=== PATIENT | male | born 1965 | race Caucasian/White ===

== ENCOUNTER 2025-02-12 14:01 | Emergency (ER) | payer BC ==
[~2025-02-12] VITALS: Ht 177.8 cm; Wt 75.0 kg
[~2025-02-12 14:01] MED LIST: CHOL100061 PO; LANS30TA10 PO; METF-900 PO; OLME20TA74 PO; TAMS-55 PO
--- NOTE | 2025-02-12 14:45 | RADIOLOGY REPORT ---
CHEST RADIOGRAPH INDICATION: weakness TECHNIQUE: Single frontal view of the chest was obtained COMPARISON: None FINDINGS: Lines and Tubes: None Lungs: Clear Pleura: No effusion. No pneumothorax. Cardiomediastinal contours: Unremarkable Bones: Unremarkable IMPRESSION: No acute disease.
--- NOTE | 2025-02-12 14:54 | ELECTROCARDIOGRAPH REPORT ---
[facility] Test Date: 2025-02-12 Test Time: 14:52:10 Pat Name: DEANNE ROCKWELL Department: EMERGENCY ROOM Room: Gender: M Histology Technician: : 1965 Requested By: DEBO PAREKH Order Number: [id number] Reading MD: Dr. ENMANUEL Causey Measurements Intervals [place] Rate: 105 P: 92 MT: 127 QRS: 111 QRSD: 89 T: 38 QT: 312 QTc: 413 Interpretive Statements Sinus tachycardia Right axis deviation ST elevation, consider inferior injury Electronically Signed On 02-13-2025 18:11:[address] ENMANUEL Causey Please click the below link to view image of tracing.
[2025-02-12 14:59] LABS: MEAN PLATELET VOLUME 7.8 FL (7.4-10.4); RED CELL DISTRIBUTION WIDTH 16.4 % (11.5-14.5)
[2025-02-12 15:22] LABS: LEUKOCYTE ESTERASE ,URINE NEGATIVE (Neg); NITRITES, URINE NEGATIVE (Neg); OCCULT BLOOD,URINE LARGE (Neg)
[2025-02-12 15:40] LABS: UA COLLECTION TYPE URINAL
[2025-02-12 15:43] LABS: AMORPHOUS URATES 2+; SQUAMOUS EPITHELIAL CELL,UR FEW /LPF (FEW)
[2025-02-12 15:44] LABS: CREATININE 0.87 MG/DL (0.60-1.10); TOTAL CARBON DIOXIDE 27.3 MMOL/L (24-32); eCRCL 97 ML/MIN; eGFR 90 ML/MIN
[2025-02-12 15:55] LABS: URINE AMPHETAMINE SCREEN NEGATIVE (Neg); URINE BARBITUATE SCREEN NEGATIVE (Neg); URINE BENZODIAZEPINES SCREEN NEGATIVE (Neg); URINE CANNABINOID SCREEN NEGATIVE (Neg); URINE COCAINE SCREEN NEGATIVE (Neg); URINE METHADONE SCREEN NEGATIVE (Neg); URINE OPIATE SCREEN NEGATIVE (Neg); URINE PHENCYCLIDINE SCREEN NEGATIVE (Neg)
[2025-02-12 16:03] LABS: BANDS% (MANUAL) 4.0 % (0-10); EOSINOPHILS % (MANUAL) 2.0 % (0-6); LYMPHOCYTES % (MANUAL) 13.0 % (21-51); MONOCYTES % (MANUAL) 16.0 % (2-12); NEUTROPHILS % (MANUAL) 65.0 % (42-75)
[2025-02-12 16:04] LABS: PLATELET ESTIMATE NORMAL
[2025-02-12] MEDS: normal saline 1000ml 1,000 ML IV ONE (16:30)
--- NOTE | 2025-02-12 17:12 | Physician Documentation ---
History of Present Illness ~ Chief Complaint: Weakness Stated Complaint: COLD SYMPTOMS SOB Time Seen by MD: 14:30 OK to notify your PCP?: Yes Mode of Arrival: Ambulatory HPI 59 year old male reports several days of weakness and shortness of breath. Recent liver transplant 09/27, as well as subsequent unsuccessful parathyroidectomy and known hypercalcemia. Also had renal stents placed and just removed one week ago as well as lithotripsy for stones. Denies fever but reports body aches. Is on tacrolimus for antirejection. Reports recent URI symptoms. Medication Reconciliation Allergies: Coded Allergies: No Known Allergies (Unverified , 02/15/23) Scheduled Cholecalciferol (Vitamin D3) (Vitamin D3), 1 CAP PO DAILY, (Reported) Lansoprazole (Lansoprazole), 1 TAB PO DAILY, (Reported) Metformin Hcl* (Metformin ER*), 1 TAB PO Q12H, (Reported) Olmesartan Medoxomil (Benicar), 1 TAB PO DAILY, (Reported) Tamsulosin Hcl* (Flomax*), 1 CAP PO DAILY, (Reported) Past Medical History Smoking Status: Never smoker Review of Systems All Other Systems at this time: Reviewed and Negative Physical Exam Vital Signs: RN Vital Signs have been reviewed: Yes, Heart Rate: 94, Respiratory Rate: 16, BP: 117/78, Pulse Oximetry: 99, Weight: 75.000 Oxygen Flow Rate: 0 Physical Exam Gen: no distress HEENT: EOMI, PERRL, NCAT Pulm: CTAB Cardiac: RRR no m/c/r Abd: deferred MSK: no deformity skin: w/d/i neuro: nonfocal Progress Results/Orders Results/Orders Medications Received in ER Medications (Trade) Dose Ordered Sig/Gauri Route PRN Reason Start Time Stop Time Status Last Admin Dose Admin Sodium Chloride 1,000 ml @ 1,000 mls/hr ONCE ONCE IV 02/12/25 16:00 02/12/25 16:59 DC 02/12/25 16:30 1,000 MLS/HR Vital Signs 02/12/25 02/12/25 02/12/25 02/12/25 14:05 14:27 14:27 15:01 Pulse 118 120 114 Resp 18 22 22 24 B/P (MAP) 121/82 110/81 (91) 104/84 (91) Pulse Ox 99 100 99 O2 Flow Rate 0 0 02/12/25 02/12/25 02/12/25 17:04 18:28 19:05 Temp 98.1 Pulse 94 90 95 Resp 16 25 17 B/P (MAP) 117/78 (91) 134/86 (102) 125/80 Pulse Ox 99 100 98 O2 Flow Rate 0 0 Laboratory Tests Test 02/12/25 14:46 02/12/25 15:00 White Blood Count 3.5 L Red Blood Count 4.14 L Hemoglobin 11.2 L Hematocrit 32.6 L Mean Corpuscular Volume 78.8 Mean Corpuscular Hemoglobin 27.2 Mean Corpuscular Hemoglobin Concent 34.5 Red Cell Distribution Width 16.4 H Platelet Count 189 Mean Platelet Volume 7.8 Neutrophils (%) (Auto) 69.2 Lymphocytes (%) (Auto) 15.9 L Monocytes (%) (Auto) 13.5 H Eosinophils (%) (Auto) 0.8 Basophils (%) (Auto) 0.6 Neutrophils # (Auto) 2.4 Lymphocytes # (Auto) 0.6 L Monocytes # (Auto) 0.5 Eosinophils # (Auto) 0.0 Basophils # (Auto) 0.0 CBC Comment Differential Total Cells Counted 100 Neutrophils % (Manual) 65.0 Band Neutrophils % 4.0 Lymphocytes % (Manual) 13.0 L Monocytes % (Manual) 16.0 H Eosinophils % (Manual) 2.0 Platelet Estimate Normal Red Blood Cell Morphology Perf Basophilic Stippling Anisocytosis 1+ Microcytosis 1+ Sodium Level 141 Potassium Level 4.3 Chloride Level 106 Carbon Dioxide Level 27.3 Anion Gap 8 Blood Urea Nitrogen 23 H Creatinine 0.87 Estimated GFR/1.73 m2 90 BUN/Creatinine Ratio 26.4 H Glucose Level 172 H Calcium Level 11.2 H Total Bilirubin 0.6 Aspartate Amino Transf (AST/SGOT) 22 Alanine Aminotransferase (ALT/SGPT) 33 Alkaline Phosphatase 166 H Troponin I High Sensitivity < 4 L Troponin I High Sens Percent Delta Troponin I Hi Sens Absolute Change Total Protein 7.8 Albumin 3.5 Globulin 4.3 Albumin/Globulin Ratio 0.8 L Chemistry Comments Urine Specimen Description Urinal Urine Color Yellow Urine Clarity Cloudy Urine pH 5.5 Urine Specific Herminie 1.025 Urine Protein 100 H Urine Glucose (UA) Negative Urine Ketones Negative Urine Occult Blood Large H Urine Nitrite Negative Urine Bilirubin Small Urine Urobilinogen 0.2 Urine Leukocyte Esterase Negative Urine RBC Tntc Urine WBC 0-4 Urine Squamous Epithelial Cells Few Urine Amorphous Urates 2+ Urine Bacteria None seen Urine Culture Indicated Not ind Volume Urine Centrifuged 10 ml Urine Comment Urine Opiates Screen Negative Urine Methadone Screen Negative Urine Fentanyl Screen Negative Urine Barbiturates Screen Negative Urine Phencyclidine Screen Negative Urine Amphetamines Screen Negative Urine Benzodiazepines Screen Negative Urine Cocaine Screen Negative Urine Cannabinoids Screen Negative Drug Screen Comment Medical Decision Making Additional information obtaine: N/A Findings 7 year old male with weakness and shortness of breath. Exam and workup so far benign with evidence only of hypercalcemia, which is baseline for him, and CXR interpreted by me demonstrating no PNA, PTX, normal contours. ACS/[place] workup negative as well with negative troponin, EKG interpreted by me demonstrating no STEMI criteria, no dysrhythmia, sinus tachycardia at 105/min. Awaiting CTA, will sign out to oncoming ER physician for continued care and disposition. Differential Dx:Considerations: Include: anemia, dehydration, dysrhythmia, electrolyte imbalance, hypoglycemia, hypovolemia, myocardial infarction Additional Information Ddx includes pneumonia, PE, sepsis, hypercalcemia Addendum Sign-out note I received sign-out on this patient at shift change. Briefly: Presents with shortness of breath and weakness. Pending CTA chest. I personally interpreted the CT scan, and this shows no pulmonary embolus, no focal consolidation to suggest pneumonia 6:50 p.m.: Re-evaluation: The patient is resting comfortably in bed. I explained the results of the testing. He and his partner are happy to go home. Vern Tinajero MD Departure Disposition: HOME / SELF CARE / HOMELESS Impression: Primary Impression: Shortness of breath Condition: Stable Referrals: NO PRIMARY CARE PROVIDER (PCP) Education Educated: Patient Educated regarding: diagnosis, treatment, prognosis, need for follow up Signature Scribe Signature: . Attestation: . DEBO PAREKH MD Feb 12, 2025 17:12 VERN TINAJERO MD Feb 12, 2025 18:44
--- NOTE | 2025-02-12 18:30 | RADIOLOGY REPORT ---
EXAM: CT CTA CHEST PE W/ IV CONTRAST Reason for study/ Clinical History: chest pain COMPARISON STUDY: DI CHEST,SINGLE VIEW on DOS: 02/12/25 Exam Date: 02/12/2025 05:27 PM Radiation Dose Information: CT Dose: CTDI volume is 40 mGy. Dose-length product is 645 mGy*cm TECHNIQUE: Multidetector CTA of the chest was performed of the chest with intravenous contrast. PULMONARY ANGIOGRAPHY PROTOCOL was utilized using a bolus- tracking technique centered on the main pulmonary artery. Axial, coronal and sagittal multiplanar and MIP reformats were performed. FINDINGS: Lower neck: Mild fat stranding with foci of air in the Visualized lower neck adjacent to the thyroid gland. Lungs and Pleura: No consolidation or suspicious pulmonary nodules. No pleural effusions. Lymph nodes: No mediastinal, hilar, or axillary lymphadenopathy. Cardiovascular and Mediastinum: No significant pericardial effusion. Scattered coronary calcifications. Pulmonary arteries: No emboli. Osseous and soft tissues: No suspicious osseous lesions. Bilateral gynecomastia. Upper abdomen: No acute abnormality in the visualized upper abdomen. Postprocedural changes near the GE junction. IMPRESSION: No pulmonary emboli. Mild fat stranding with foci of air in the visualized lower neck adjacent to the thyroid gland. This is nonspecific and may be postsurgical. Underlying infection or inflammation is possible. Correlate clinically and consider CT neck with contrast for further evaluation.
[2025-02-12 19:05] VITALS: BP 125/80; PULSE 95; RESP 17; TEMP 98.1; O2SAT 98
== END 2025-02-12 19:08 | disposition home or self-care (01) ==
LOC: ER 14:02
DX: R06.02 Shortness of breath (principal); Z79.899 Other long term (current) drug therapy
CPT/HCPCS: 36415; 71045; 71275; 80053; 80305; 81001; 84484; 85007; 85025; 93005; 96360; 99285; J7030; Q9967